=== PATIENT | male | born 1960 | race Caucasian/White ===

== ENCOUNTER 2023-08-22 20:51 | Inpatient (IN) ==
[2023-08-22] MEDS ORDERED: IOPAMIDOL 100 ML BOTTLE IV ONE (20:52)
[2023-08-22] MEDS ORDERED: ONDANSETRON 4 MG/2 ML VIAL IV PRN (20:53)
[2023-08-22] MEDS ORDERED: 0.9 % SODIUM CHLORIDE 1,000 ML IV ONE (20:53)
[2023-08-22] MEDS ORDERED: morphine 4 MG/ML VIAL IV PRN (20:53)
[2023-08-22 23:09] LABS: Basophils # (Auto) 0.07 K/mcL (0.00-0.30); Basophils % (Auto) 0.6 % (0.0-2.0); Eosinophils # (Auto) 0.23 K/mcL (0.00-0.70); Eosinophils % (Auto) 2.1 % (0.0-7.0); Hematocrit 51.8 % (40.1-51.0); Hemoglobin 17.2 g/dL (13.7-17.5); Lymphocytes # (Auto) 2.01 K/mcL (1.50-4.80); Lymphocytes % (Auto) 18.6 % (15.5-49.0); Mean Corpuscular HGB Conc 33.2 g/dL (31.0-36.0); Mean Platelet Volume 11.7 fL (8.8-12.5); Monocytes # (Auto) 0.75 K/mcL (0.10-0.90); Monocytes % (Auto) 6.9 % (1.0-12.0); Neutrophils % (Auto) 71.6 % (38.0-78.0); Platelet Count 172 K/mcL (140-440); RBC 5.63 M/mcL (4.63-6.08); WBC 10.8 K/mcL (4.5-11.0)
[2023-08-22 23:29] LABS: ALT/SGPT 30 U/L (<40); AST/SGOT 27 U/L (<40); Albumin 4.2 gm/dL (3.2-5.2); Albumin/Globulin Ratio 1.3 (1.0-2.3); Alkaline Phosphatase 112 U/L (39-117); Bilirubin,Total 0.4 mg/dL (0.1-1.0); Blood Urea Nitrogen 16 mg/dL (8-23); Carbon Dioxide 28 mmol/L (22-30); Chloride 105 mmol/L (96-108); Globulin 3.2 gm/dL (2.2-3.7); Glomerular Filtration Rate 70; Glucose 124 mg/dL (70-105)
[2023-08-23] MEDS ORDERED: ONDANSETRON 4 MG/2 ML VIAL IV PRN (02:22)
[2023-08-23] MEDS: DEXTROSE 5%-LR 1,000 ML IV SCH ×3 (03:31→16:23)
[2023-08-23] MEDS: PIPERACILLIN SODIUM/TAZOBACTAM 3.375 GM in DEXTROSE 5% IN WATER 100 ML IV SCH ×4 (04:24→22:57)
[2023-08-23] MEDS: PANTOPRAZOLE 40 MG VIAL IV SCH ×2 (07:38→16:24)
[2023-08-24] MEDS: DEXTROSE 5%-LR 1,000 ML IV SCH ×4 (04:39→20:12)
[2023-08-24] MEDS: PIPERACILLIN SODIUM/TAZOBACTAM 3.375 GM in DEXTROSE 5% IN WATER 100 ML IV SCH ×3 (05:54→21:58)
[2023-08-24 05:57] LABS: Hematocrit 45.8 % (40.1-51.0); Mean Cell Volume 93.3 fL (80.0-100.0); Mean Corpuscular HGB Conc 32.8 g/dL (31.0-36.0); Platelet Count 134 K/mcL (140-440); RBC 4.91 M/mcL (4.63-6.08); Red Cell Distribution Width 11.9 % (11.5-14.5); WBC 7.8 K/mcL (4.5-11.0)
[2023-08-24 07:19] LABS: Blood Urea Nitrogen 12 mg/dL (8-23); Calcium 8.3 mg/dL (8.6-10.4); Carbon Dioxide 27 mmol/L (22-30); Chloride 110 mmol/L (96-108); Glomerular Filtration Rate 70; Glucose 106 mg/dL (70-105)
[2023-08-24] MEDS: PANTOPRAZOLE 40 MG VIAL IV SCH ×2 (07:53→17:17)
[2023-08-24] MEDS: HYDROmorphone 0.5 MG/0.5 ML SYRINGE IV PRN (08:47)
[2023-08-25] MEDS: HYDROmorphone 0.5 MG/0.5 ML SYRINGE IV PRN (01:49)
[2023-08-25] MEDS: PIPERACILLIN SODIUM/TAZOBACTAM 3.375 GM in DEXTROSE 5% IN WATER 100 ML IV SCH ×3 (05:11→21:19)
[2023-08-25 06:09] LABS: Basophils # (Auto) 0.06 K/mcL (0.00-0.30); Basophils % (Auto) 0.8 % (0.0-2.0); Eosinophils # (Auto) 0.28 K/mcL (0.00-0.70); Eosinophils % (Auto) 3.8 % (0.0-7.0); Hematocrit 46.6 % (40.1-51.0); Hemoglobin 15.3 g/dL (13.7-17.5); Lymphocytes # (Auto) 1.96 K/mcL (1.50-4.80); Lymphocytes % (Auto) 26.3 % (15.5-49.0); Mean Corpuscular HGB Conc 32.8 g/dL (31.0-36.0); Mean Platelet Volume 10.9 fL (8.8-12.5); Monocytes # (Auto) 0.76 K/mcL (0.10-0.90); Monocytes % (Auto) 10.2 % (1.0-12.0); Neutrophils % (Auto) 58.9 % (38.0-78.0); Platelet Count 143 K/mcL (140-440); RBC 5.01 M/mcL (4.63-6.08); Red Cell Distribution Width 11.7 % (11.5-14.5); WBC 7.4 K/mcL (4.5-11.0)
[2023-08-25 06:16] LABS: Blood Urea Nitrogen 10 mg/dL (8-23); Calcium 8.8 mg/dL (8.6-10.4); Carbon Dioxide 27 mmol/L (22-30); Chloride 109 mmol/L (96-108); Glomerular Filtration Rate 63; Glucose 110 mg/dL (70-105)
[2023-08-25] MEDS: PANTOPRAZOLE 40 MG VIAL IV SCH ×2 (07:13→16:53)
[2023-08-25] MEDS: DEXTROSE 5%-LR 1,000 ML IV SCH ×2 (16:57→18:33)
[2023-08-26] MEDS: DEXTROSE 5%-LR 1,000 ML IV SCH ×2 (01:51→04:22)
[2023-08-26] MEDS: PIPERACILLIN SODIUM/TAZOBACTAM 3.375 GM in DEXTROSE 5% IN WATER 100 ML IV SCH (05:47)
[2023-08-26] MEDS: PANTOPRAZOLE 40 MG VIAL IV SCH (06:38)
[2023-08-26] MEDS ORDERED: oxyCODONE IR 5 MG TABLET PO PRN (09:46)
== END 2023-08-26 14:14 | disposition home or self-care (01) | DRG 390 ==
LOC: ED 20:51 → MEDSUR 08-23 02:47
PROVIDERS: ADMIT Surgery Surgical Critical Care; ATTEND Surgery Surgical Critical Care